=== PATIENT | female | born 1955 | race Caucasian/White ===

== ENCOUNTER 2023-05-29 07:28 | Day surgery (SDC) | payer MEDICARE, OTHER ==
[2023-05-29] MEDS ORDERED: fentaNYL 100 MCG/2 ML SDV IV ONE (07:29)
[2023-05-29] MEDS ORDERED: Midazolam 1 MG/ML 2 ML SDV IV ONE (07:29)
[2023-05-29] MEDS ORDERED: Lactated Ringers 1,000 ML IV PRN (07:30)
[2023-05-29] MEDS: Sodium Chloride 0.9% 10 ML Syringe FLUSH PRN (08:30)
[2023-05-29] MEDS: acetaZOLAMIDE 500 MG Cap.ER PO ONE (09:48)
[2023-05-29 11:54] VITALS: BP 122/75; PULSE 64
== END 2023-05-29 10:12 | disposition home or self-care (01) ==
LOC: FB.SDS 07:28
PROVIDERS: ATTEND Ophthalmology
DX: H25.9 Unspecified age-related cataract (principal); J44.9 Chronic obstructive pulmonary disease, unspecified; I13.0 Hypertensive heart and chronic kidney disease with heart failure and stage 1 through stage 4 chronic kidney disease, or unspecified chronic kidney disease; I50.32 Chronic diastolic (congestive) heart failure; N18.32 Chronic kidney disease, stage 3b; I48.92 Unspecified atrial flutter; I48.0 Paroxysmal atrial fibrillation; I27.20 Pulmonary hypertension, unspecified; D68.69 Other thrombophilia; G47.33 Obstructive sleep apnea (adult) (pediatric); E66.01 Morbid (severe) obesity due to excess calories; Z68.41 Body mass index [BMI] 40.0-44.9, adult; Z79.899 Other long term (current) drug therapy; Z79.01 Long term (current) use of anticoagulants; Z79.51 Long term (current) use of inhaled steroids; Z88.8 Allergy status to other drugs, medicaments and biological substances
CPT/HCPCS: A9270-GY; J2250; J3010; J3490; V2632